=== PATIENT | male | born 1985 | race Asian ===

== ENCOUNTER 2019-10-26 18:47 | Emergency (ER) | payer OTHER, SELFPAY ==
[2019-10-26 19:18] VITALS: BP 135/76; PULSE 76; RESP 18; TEMP 36.6; O2SAT 99
[2019-10-26 20:26] VITALS: BP 123/81; PULSE 77; RESP 16; O2SAT 96
--- NOTE | 2019-10-27 07:11 | ED.EXTPRO ---
HPI - Extremity Problem General Chief complaint: Extremity Problem,Nontraumatic Stated complaint: BEE STING RIGHT ANKLE RED Time Seen by Provider: 10/26/19 20:24 Source: patient Mode of arrival: Ambulatory Limitations: no limitations History of Present Illness HPI Narrative: 34M nonsmoker without medical problems presents with chief complaint of redness on R medial ankle for a few days after being stung by a bee. He denies any pain, itching or swelling. He denies any difficulty breathing or swallowing. Patient denies any chest pain. He contacted the nursing hotline and was instructed to present to the emergency department for evaluation. HE is otherwise well and free of complaint Onset (ago): minute(s) Pain Consistency: constant Location: right Radiation: none Relieving factors: nothing Review of Systems Constitutional Constitutional: Denies chills, Denies fatigue, Denies fever(s), Denies frequent falls, Denies lethargy and Denies weakness Eyes Eyes: Denies change in vision, Denies eye discharge, Denies irritation and Denies loss of vision ENT Ears, Nose, Mouth, and Throat: Denies change in voice, Denies dizziness, Denies neck pain, Denies sore throat and Denies throat swelling Cardiovascular Cardiovascular: Denies chest pain, Denies irregular heart rhythm, Denies lightheadedness, Denies palpitations, Denies dyspnea, Denies dyspnea on exertion and Denies orthopnea Respiratory Respiratory: Denies cough, Denies dyspnea, Denies dyspnea on exertion and Denies wheezing Gastrointestinal Gastrointestinal: Denies abdominal pain, Denies change in bowel habits, Denies diarrhea, Denies nausea and Denies vomiting Musculoskeletal Musculoskeletal: Denies neck pain and Denies numbness Integumentary/Breasts Skin/Breast: Denies pruritus, Reports erythema, Denies rash and Denies wounds Neurologic Neurologic: Denies behavioral changes, Denies confusion, Denies dizziness, Denies frequent falls, Denies loss of vision, Denies numbness and Denies weakness Psychiatric Psychiatric: Denies anxiety, Denies behavioral changes, Denies confusion, Denies depression, Denies homicidal ideation and Denies suicidal ideation Endocrine Endocrine: Denies fatigue, Denies flushing and Denies palpitations Hematologic/Lymphatic Hematologic/Lymphatic: Denies easy bruising Allergic/Immunologic Allergic/Immunologic: Denies urticaria, Denies throat swelling and Denies wheezing Exam Narrative Exam Narrative: GEN: AOx3 and in mild distress EYES: Pupils are equal, round, and reactive to light and accommodation. Extraoccular muscles are intact bilaterally. There is no subconjunctival hemorrhage or exudate. CHEST: Lungs are clear to auscultation bilaterally and free of wheezes, rales, or rhonchi. Heart rate is regular rhythm, there are no murmurs, clicks, rubs, or gallops. There is no chest wall tenderness. ABD: Abdomen is soft and nontender. There is no guarding or rebound. Bowel sounds are normal in all 4 quadrants. There is no mass or organomegaly. EXT: Full painless ROM of all extremities with no loss of sensation or strength. 3cm x 3cm area of erythema on medial ankle. No pain, swelling. SKIN: Warm, pink, and dry. No erythema or rash Initial Vital Signs Initial Vital Signs: Vital Signs Temperature 98 F 10/26/19 19:18 Pulse Rate 76 10/26/19 19:18 Respiratory Rate 18 10/26/19 19:18 Blood Pressure 135/76 10/26/19 19:18 Pulse Oximetry 99 10/26/19 19:18 Discharge Plan Departure Patient Disposition: Home Clinical Impression: Accidental bee sting Discharge Date/Time: 10/26/19 20:36 Instructions: DI for Insect Bites and Stings Activity Restrictions/Additional Instructions: *You have been diagnosed with [ bee sting with localized inflammatory reaction ] *What to do: *Take medications as directed: Over the counter topical steroid *Follow up with your primary care provider in 2-3 days, call for an appointment. Let them know you were seen in the Emergency Department and that we ask that you be seen in follow up *Return to ER if you should have any new, worsening or concerning symptoms
== END 2019-10-26 20:36 | disposition home or self-care (01) ==
PROVIDERS: Emergency Provider Emergency Medicine
DX: T63.441A Toxic effect of venom of bees, accidental (unintentional), initial encounter (principal)
CPT/HCPCS: 99281